=== PATIENT | female | born 1970 | race Asian ===

== ENCOUNTER 2020-09-21 17:26 | Observation (INO) | payer OTHER, SELFPAY ==
[2020-09-21] VITALS (13 sets, daily range): BP systolic 110–184; BP diastolic 73–111; PULSE 80–104; RESP 10–18; TEMP 37–37.9; O2SAT 93–100; BMI 28.3
--- NOTE | 2020-09-21 | PATH_ITS ---
[facility] Accession Number: [id number] . 01 Material submitted: . lymph node - RIGHT GROIN LYMPH NODES . 01 Clinical history: . PAIN, POSS HERNIA, FEVER AND CHILLS . 01 Diagnosis: Right Groin Lymph Nodes, Excision: Acute suppurative lymphadenitis with associated abscess formation and necrosis, see microscopic description. Negative for malignancy. MRV 10/01/2020 1453 Local . 01 Electronically signed: . Maggi Guadalupe MD, Pathologist NPI- [id number] . 01 Gross description: . The specimen is received in formalin, labeled groin lymph nodes and consists of four godoy-pink lymph nodes ranging from 1.0 to 2.8 cm. The lymph nodes are entirely submitted. . A1: one bisected lymph node (blue) and one trisected lymph node. A2-A4: one lymph node, serially sectioned. A5-A8: largest lymph node, serially sectioned. (EA:[id number]) /MRV 09/24/2020 1402 Local . 01 Microscopic: . Microscopic examination reveals multiple lymph nodes with extensive suppurative inflammation, collections of acute inflammatory cells and debris-laden histiocytes within the necrotic foci, merging into large stellate-shaped abscesses and extending into the perinodal fibroadipose tissue. In areas, the architecture is effaced by this extensive suppurative inflammation. To better evaluate this process, special stains and a limited panel of immunostains were performed (to evaluate the jorje architecture, as it is largely effaced by the abscess), as follows: . AFB: Negative for acid-fast bacilli. GMS-F: Negative for fungal organisms. . CD3: T lymphocytes positive. CD20: B lymphocytes positive (predominantly cortical areas). BCL2: T lymphocytes positive (germinal centers of the rare residual reactive follicles negative). BCL6: Rare follicles positive. Ki-67: Increased in the proliferating myeloids and histiocytes, and also marking the rare reactive germinal centers. The immunostains support normal distribution of lymphocytes in the areas with preserved architecture. . In summary, the histologic features of suppurative inflammation with necrosis and abscess formation are nonspecific and the differential diagnosis is wide, including various infectious/inflammatory disorders, e.g. fungal infection, mycobacterial infection (despite negative GMS and AFB special stains, respectively), cat scratch disease, infectious lymphogranuloma venereum, less likely infarction, etc. . Clinical correlation and correlation with cultures and other laboratory studies (if any), recommended to determine the causative agent. . Serologic/PCR studies are also recommended to specifically identify AFB organisms, fungal organisms, bacteria (Bartonella henselae, Chlamydia trachomatis, etc). . There is no evidence of malignancy. . * This test was developed and its performance characteristics determined by [facility]. It has not been cleared or approved by the U.S. Food and Drug Administration. The FDA has determined that such clearance or approval is not necessary. This test is used for clinical purposes. It should not be regarded as investigational or for research. . 01 Pathologist provided ICD-10: R59.0 . 01 CPT . 965312, 299983, 542476, D81753, C83796 Performed at: [address] [address], [place], [place] [id number] MD Waylon Mustafa MD Phone: [phone]
--- NOTE | 2020-09-21 17:57 | ED.ABDPAIN ---
HPI - Abdominal Pain General Chief Complaint: Abdominal Pain Stated Complaint: Pain, Poss Hernia, Fever and Chills Time Seen by Provider: 09/21/20 17:56 Source: patient Mode of arrival: Ambulatory Limitations: no limitations History of Present Illness HPI narrative: 50F non smoker with history of prior presents with her significant other and a chief complaint worsening right lower quadrant pain over the past few days. She has noticed a painful ?lump? for the past few days and saw her primary care provider who had ordered an outpatient ultrasound which is scheduled for September 29. She was encouraged to present to the emergency department for worsening symptoms or the presentation of fever. Patient's pain is worsening, particular with any motion and she has improvement with rest. She has had a fever as high as 100.6 at home. She is had no change in bowel movements, still passes gas and denies dysuria, frequency or urgency. She has had no pelvic pain nor vaginal bleeding or discharge. She has been NPO since 1:00 p.m. complaint: abdominal pain Onset (ago): day(s) Pain Consistency: constant Location: RLQ Severity: severe Quality: cramping and stabbing Radiation: none Relieving factors: rest Exacerbating factors: movement Associated symptoms: nausea, fever and chills Related Data Allergies Allergy/AdvReac Type Severity Reaction Status Date / Time No Known Drug Allergies Allergy Verified 09/21/20 18:18 Review of Systems Constitutional Constitutional: Reports chills, Denies fatigue, Reports fever(s), Denies frequent falls, Denies lethargy and Denies weakness Eyes Eyes: Denies change in vision, Denies eye discharge, Denies irritation and Denies loss of vision ENT Ears, Nose, Mouth, and Throat: Denies change in voice, Denies dizziness, Denies neck pain, Denies sore throat and Denies throat swelling Cardiovascular Cardiovascular: Denies chest pain, Denies irregular heart rhythm, Denies lightheadedness, Denies palpitations, Denies dyspnea, Denies dyspnea on exertion and Denies orthopnea Respiratory Respiratory: Denies cough, Denies dyspnea, Denies dyspnea on exertion and Denies wheezing Gastrointestinal Gastrointestinal: Reports abdominal pain, Denies change in bowel habits, Denies diarrhea, Reports nausea and Denies vomiting Musculoskeletal Musculoskeletal: Denies neck pain and Denies numbness Integumentary/Breasts Skin/Breast: Denies pruritus, Denies erythema, Denies rash and Denies wounds Neurologic Neurologic: Denies behavioral changes, Denies confusion, Denies dizziness, Denies frequent falls, Denies loss of vision, Denies numbness and Denies weakness Psychiatric Psychiatric: Denies anxiety, Denies behavioral changes, Denies confusion, Denies depression, Denies homicidal ideation and Denies suicidal ideation Endocrine Endocrine: Denies fatigue, Denies flushing and Denies palpitations Hematologic/Lymphatic Hematologic/Lymphatic: Denies easy bruising Allergic/Immunologic Allergic/Immunologic: Denies urticaria, Denies throat swelling and Denies wheezing Patient History Social History Smoking Status: Former smoker Smoking Status: Former smoker alcohol intake frequency: 0-2 drinks per day Substance Use Type: does not use Exam Narrative Exam Narrative: GENERAL: [50] year old patient appears stated age. Well-nourished, well-developed patient, in obvious distress, ill-appearing HEAD: Atraumatic. Normocephalic. EYES: Pupils equal round and reactive. Extraocular motions intact. No scleral icterus. No injection or drainage. ENT: Nose without bleeding, purulent drainage. Throat without erythema, tonsillar hypertrophy or exudate. Airway patent. NECK: Trachea midline. Non tender CARDIOVASCULAR: Regular rate and rhythm without murmurs, gallops, or rubs. RESPIRATORY: Clear to auscultation. Breath sounds equal bilaterally. No wheezes, rales, or rhonchi. GASTROINTESTINAL: Abdomen soft, tender mass in right groin consistent with incarcerated hernia. No overlying erythema, quite tender to palpation, unable to reduce, nondistended. EXTREMITIES: No edema or joint tenderness. BACK: Nontender without deformity or crepitance. No flank tenderness. NEURO: AOx3. SKIN: No rash or erythema of visible areas Initial Vital Signs Initial Vital Signs: Vital Signs Temperature 99.4 F 09/21/20 17:35 Pulse Rate 104 H 09/21/20 17:35 Respiratory Rate 16 09/21/20 17:35 Blood Pressure 184/111 H 09/21/20 17:35 Pulse Oximetry 98 09/21/20 17:35 Course Orders Ordered: ED Orders 09/21/20 17:44 EKG-12 Lead Stat 09/21/20 18:00 Complete Blood Count AUTO DIFF Stat Comprehensive Metabolic Panel Stat Lactate (Lactic Acid) Stat Lipase Stat Partial Thromboplastin Time Stat Prothrombin Time INR Stat 09/21/20 18:15 CT abdomen pelvis w con Stat 09/21/20 18:33 Blood Culture Stat 09/21/20 19:00 COVID19 - ADMIT (AUTOMATION TECH swab/PCR) Stat Potassium Chloride 40 meq/ (Sodium Chloride) 520 mls @ 130 mls/hr IV NOW ONE Stop: 09/21/20 23:29 Consultations Consultation #1: Call to General surgery (Dr. Ricci) after physical exam for discussion about this being a surgical case. She will come see patient awaiting CT results, but likely to the OR tonight Vital Signs Vital signs: Vital Signs - 8 hr 09/21/20 17:35 Temperature 99.4 F Pulse Rate 104 H Respiratory Rate 16 Blood Pressure 184/111 H Pulse Oximetry 98 MDM - Abdominal Pain Lab Data Result diagrams: 09/21/20 18:00 09/21/20 18:00 Labs: Lab Results 09/21/20 09/21/20 09/21/20 Range/Units 18:00 18:00 18:00 WBC 8.9 (4.5-11.0) X10^3/uL RBC 4.60 (4.0-5.2) X10^6/uL Hgb 13.8 (12.0-16.0) g/dL Hct 40.1 (36-46) % MCV 87.1 (80-100) fL MCH 30.0 (26-34) PG MCHC 34.5 (30-36) % RDW 13.0 (11.6-14.8) % Plt Count 315 (150-400) X10^3/uL Neut % (Auto) 68.8 (50-75) % Lymph % (Auto) 21.0 L (25-40) % [place] % (Auto) 9.6 (3-14) % Eos % (Auto) 0.2 L (2-4) % Baso % (Auto) 0.4 (0-2) % Neut # (Auto) 6100 (3408-8365) /uL Lymph # (Auto) 1900 (9100-2029) /uL [place] # (Auto) 800 (0-900) /uL Eos # (Auto) 0 (0-450) /uL Baso # (Auto) 0 (0-100) /uL PT 12.6 (10.1-12.7) SECONDS INR 1.1 (0.9-1.3) APTT 34 (26.4-36.2) SECONDS Sodium 132 L (137-145) mmol/L Potassium 3.3 L (3.4-5.1) mmol/L Chloride 98 (98-107) mmol/L Carbon Dioxide 27 (22-32) mmol/L BUN 14 (7-17) mg/dL Creatinine 0.57 (0.52-1.04) mg/dL Estimated GFR > 60.0 (>60) mL/min BUN/Creatinine Ratio 24.6 H (6-22) Glucose 107 H (70-100) mg/dL Lactate (0.7-2.1) mmol/L Calcium 9.4 (8.4-10.2) mg/dL Total Bilirubin 0.3 (0.2-1.3) mg/dL AST 25 (14-36) IU/L ALT 25 (<35) IU/L Alkaline Phosphatase 55 (38-126) U/L Total Protein 7.6 (6.3-8.2) g/dL Albumin 4.1 (3.5-5.0) g/dL Globulin 3.5 (1.7-4.1) g/dL Albumin/Globulin Ratio 1.2 (1.0-2.8) Lipase 102 (23-300) U/L 09/21/20 Range/Units 18:00 WBC (4.5-11.0) X10^3/uL RBC (4.0-5.2) X10^6/uL Hgb (12.0-16.0) g/dL Hct (36-46) % MCV (80-100) fL MCH (26-34) PG MCHC (30-36) % RDW (11.6-14.8) % Plt Count (150-400) X10^3/uL Neut % (Auto) (50-75) % Lymph % (Auto) (25-40) % [place] % (Auto) (3-14) % Eos % (Auto) (2-4) % Baso % (Auto) (0-2) % Neut # (Auto) (6943-2140) /uL Lymph # (Auto) (7377-3460) /uL [place] # (Auto) (0-900) /uL Eos # (Auto) (0-450) /uL Baso # (Auto) (0-100) /uL PT (10.1-12.7) SECONDS INR (0.9-1.3) APTT (26.4-36.2) SECONDS Sodium (137-145) mmol/L Potassium (3.4-5.1) mmol/L Chloride (98-107) mmol/L Carbon Dioxide (22-32) mmol/L BUN (7-17) mg/dL Creatinine (0.52-1.04) mg/dL Estimated GFR (>60) mL/min BUN/Creatinine Ratio (6-22) Glucose (70-100) mg/dL Lactate 1.4 (0.7-2.1) mmol/L Calcium (8.4-10.2) mg/dL Total Bilirubin (0.2-1.3) mg/dL AST (14-36) IU/L ALT (<35) IU/L Alkaline Phosphatase (38-126) U/L Total Protein (6.3-8.2) g/dL Albumin (3.5-5.0) g/dL Globulin (1.7-4.1) g/dL Albumin/Globulin Ratio (1.0-2.8) Lipase (23-300) U/L Point of care testing: Point of Care Testing Test Results Negative Urine Dip Bedside Urine Glucose Negative Bedside Urine Bilirubin - Negative Bedside Urine Ketone - Negative Urine Specific [place] 1.015 Bedside Urine Occult Blood - Negative Bedside Urine pH 7 Bedside Urine Protein +/- 15 Bedside Urine Urobilinogen - Negative Bedside Urine Nitrite - Negative Bedside Urine Leukocytes - Negative Esterase Imaging Data CT scan - abdomen/pelvis: Radiologist's Impression: [address] [id number] Scan ReportSigned Patient: Kari Real KMR#: [id number]: [id number]:[id number]/Sex: 50 / FDate of Service: 09/21/20Loc: EDAccession Number: [id number] Procedure: CT abdomen pelvis w con Ordering Provider: Christiano Ureña D.O. PROCEDURE: CT ABDOMEN PELVIS W CON INDICATIONS: severe rlq pain, likely incarcerated hernia TECHNIQUE: After the administration of intravenous contrast, 5 mm thick sections acquired from the diaphragm to the symphysis. 5 mm coronal and sagittal reformats were acquired. For radiation dose reduction, the following was used: automated exposure control, adjustment of mA and/or kV according to patient size. COMPARISON: None. FINDINGS: Image quality: Excellent. ABDOMEN: Lung bases: Lung bases are clear. Heart size is normal. Solid organs: Evaluation of the liver demonstrates no focal hepatic lesions. The gallbladder appears within normal limits without calcified gallstones. Biliary system is non-dilated. Pancreas enhances normally. No peripancreatic fat stranding or fluid collections. No pancreatic duct dilatation. The spleen is normal in size. No adrenal nodules. Kidneys demonstrate no hydronephrosis. 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 A punctate density within the right kidney is suggestive of a small nonobstructing stone. Evaluation 4 small stones is limited in the setting of intravenous contrast. Peritoneum and bowel: Bowel loops demonstrate normal wall thickness and caliber. The appendix is normal in appearance. There is colonic diverticulosis without acute diverticulitis. No free fluid or air. Nodes and vessels: No retroperitoneal or mesenteric adenopathy by size criteria. Aorta and inferior vena cava are normal in size. Miscellaneous: No ventral hernias. PELVIS: Genitourinary: Bladder wall thickness is normal. The uterus demonstrates multiple lobulated masses likely representing fibroids, including a right posterior exophytic fibroid measuring up to 4.9 x 3.9 cm. Miscellaneous: No inguinal hernias. There is a small right femoral hernia containing herniated fat as well as an enlarged right inguinal lymph node measuring up to 1.2 cm. There is associated mild inflammatory fat stranding in the region. An additional enlarged inguinal lymph node lateral to the hernia measures up to 1.6 cm. Bones: No suspicious bony lesions. No vertebral body compression fractures. IMPRESSION: 1. Small right femoral hernia containing herniated fat and an enlarged right inguinal lymph node. Associated fat stranding is present within the hernia consistent within a nonspecific inflammatory changes or fat necrosis. 2. Additional prominent right inguinal lymph nodes also demonstrated including an enlarged 1.6 cm node with adjacent fat stranding. These are nonspecific but are also likely reactive secondary to an infectious or inflammatory process. Clinical follow-up is recommended to demonstrate resolution of lymphadenopathy. 3. Enlarged uterus with multiple fibroids. 4. No evidence of appendicitis. 5. Horseshoe kidney demonstrated without hydronephrosis. Dictated by: Waylon Warner M.D. on 09/21/2020 at 19:01 Approved by: Waylon Warner M.D. on 09/21/2020 at 19:13 Discharge Plan Departure Patient Disposition: Admitted as Observation Clinical Impression: Incarcerated hernia Admit Date/Time: 09/21/20 19:52 Admit Provider: Diane Betancourt
[2020-09-21 18:13] LABS: Add Manual Diff / Slide Review NO; Basophils Absolute Auto 0 /uL (0-100); Basophils Percent Auto 0.4 % (0-2); Eosinophils Absolute Auto 0 /uL (0-450); Eosinophils Percent Auto 0.2 % (2-4); Hematocrit 40.1 % (36-46); Hemoglobin 13.8 g/dL (12.0-16.0); Lymphocytes Absolute Auto 1900 /uL (1100-4500); Mean Corpuscular HGB Conc 34.5 % (30-36); Mean Corpuscular Volume 87.1 fL (80-100); Monocytes Absolute Auto 800 /uL (0-900); Monocytes Percent Auto 9.6 % (3-14); Neutrophils Absolute Auto 6100 /uL (1500-7000); Neutrophils Percent Auto 68.8 % (50-75); Platelet Count 315 X10^3/uL (150-400); White Blood Cell Count 8.9 X10^3/uL (4.5-11.0)
--- NOTE | 2020-09-21 18:15 | DI.CT.S_ITS ---
PROCEDURE: CT ABDOMEN PELVIS W CON INDICATIONS: severe rlq pain, likely incarcerated hernia TECHNIQUE: After the administration of intravenous contrast, 5 mm thick sections acquired from the diaphragm to the symphysis. 5 mm coronal and sagittal reformats were acquired. For radiation dose reduction, the following was used: automated exposure control, adjustment of mA and/or kV according to patient size. COMPARISON: None. FINDINGS: Image quality: Excellent. ABDOMEN: Lung bases: Lung bases are clear. Heart size is normal. Solid organs: Evaluation of the liver demonstrates no focal hepatic lesions. The gallbladder appears within normal limits without calcified gallstones. Biliary system is non-dilated. Pancreas enhances normally. No peripancreatic fat stranding or fluid collections. No pancreatic duct dilatation. The spleen is normal in size. No adrenal nodules. Kidneys demonstrate no hydronephrosis. 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 A punctate density within the right kidney is suggestive of a small nonobstructing stone. Evaluation 4 small stones is limited in the setting of intravenous contrast. Peritoneum and bowel: Bowel loops demonstrate normal wall thickness and caliber. The appendix is normal in appearance. There is colonic diverticulosis without acute diverticulitis. No free fluid or air. Nodes and vessels: No retroperitoneal or mesenteric adenopathy by size criteria. Aorta and inferior vena cava are normal in size. Miscellaneous: No ventral hernias. PELVIS: Genitourinary: Bladder wall thickness is normal. The uterus demonstrates multiple lobulated masses likely representing fibroids, including a right posterior exophytic fibroid measuring up to 4.9 x 3.9 cm. Miscellaneous: No inguinal hernias. There is a small right femoral hernia containing herniated fat as well as an enlarged right inguinal lymph node measuring up to 1.2 cm. There is associated mild inflammatory fat stranding in the region. An additional enlarged inguinal lymph node lateral to the hernia measures up to 1.6 cm. Bones: No suspicious bony lesions. No vertebral body compression fractures. IMPRESSION: 1. Small right femoral hernia containing herniated fat and an enlarged right inguinal lymph node. Associated fat stranding is present within the hernia consistent within a nonspecific inflammatory changes or fat necrosis. 2. Additional prominent right inguinal lymph nodes also demonstrated including an enlarged 1.6 cm node with adjacent fat stranding. These are nonspecific but are also likely reactive secondary to an infectious or inflammatory process. Clinical follow-up is recommended to demonstrate resolution of lymphadenopathy. 3. Enlarged uterus with multiple fibroids. 4. No evidence of appendicitis. 5. Horseshoe kidney demonstrated without hydronephrosis. Dictated by: Waylon Warner M.D. on 09/21/2020 at 19:01 Approved by: Waylon Warner M.D. on 09/21/2020 at 19:13
[2020-09-21 18:21] LABS: INR 1.1 (0.9-1.3); Prothrombin Time 12.6 SECONDS (10.1-12.7)
[2020-09-21 18:23] LABS: PTT Partial Thromboplastin Tim 34 SECONDS (26.4-36.2)
[2020-09-21 18:25] LABS: Alanine Aminotransferase 25 IU/L (<35); Albumin 4.1 g/dL (3.5-5.0); Albumin Globulin Ratio 1.2 (1.0-2.8); Alkaline Phosphatase 55 U/L (38-126); Aspartate Aminotransferase 25 IU/L (14-36); BUN Creatinine Ratio 24.6 (6-22); Bilirubin Total 0.3 mg/dL (0.2-1.3); Blood Urea Nitrogen 14 mg/dL (7-17); Calcium 9.4 mg/dL (8.4-10.2); Carbon Dioxide 27 mmol/L (22-32); Chloride 98 mmol/L (98-107); Estimated Glomerular Filt Rate > 60.0 mL/min (>60); Globulin 3.5 g/dL (1.7-4.1); Glucose 107 mg/dL (70-100); HEMOLYSIS 24 (0-50); Lipase 102 U/L (23-300); Potassium 3.3 mmol/L (3.4-5.1); Sodium 132 mmol/L (137-145); Total Protein 7.6 g/dL (6.3-8.2)
[2020-09-21 18:26] LABS: Lactate (Lactic Acid) 1.4 mmol/L (0.7-2.1)
--- NOTE | 2020-09-21 19:52 | PM.HP.1 ---
History of Present Illness History of Present Illness Date Patient Seen: 09/21/20 Time Patient Seen: 19:52 Chief complaint: Pain, Poss Hernia, Fever and Chills Narrative: This is a 50 yo woman with h/o HTN, HLD, three days of right groin pain. She has been renovating her home with her and has been doing more physical labor than usual. She noticed sudden pain and a bulge in her groin on Tuesday. It was worse on , and she came in to see her PCP. An US was ordered and scheduled for 09/29. She continued to have worsening pain, and today noted a fever of 100.6. She came into the ER and had a CT scan which revealed a femoral hernia with incarcerated fat and a lymph node, with surrounding fat stranding. In the ER her temp is 99.6, and her HR is 104. She has a normal WBC and no left shift. She c/o severe right groin pain and is exquisitely tender. ROS: Denies dysuria, hematuria, flank pain, denies obstipation, denies nausea/vomiting. Thirteen system review is otherwise negative other than as mentioned below and in HPI. PMH: DM2 HTN HLD Eczema PSH: C section 15 years ago LEEP procedure Allergies: NKDA Meds: Atorvastatin 20mg/d Meformin 500mg/d Lisinopril 20mg/d Metoprolol 50mg/d HCTZ 25mg/d SOC: Lives with ; stopped smoking 20 years ago; rare alcohol use PE: GENERAL: Alert, comfortable, in mild distress due to pain. Overweight. Appears stated age. Answers questions promptly and appropriately. Vital signs noted. HENT: Normocephalic, atraumatic. Hearing intact. EYES: Conjunctiva pink, sclera white, no periorbital swelling. CARDIOVASCULAR: Mild tachycardia at 1:04 a.m.. No pedal edema. RESPIRATORY: Non-tachypneic, breathing comfortably on room air. GASTROINTESTINAL: Abdomen soft and non-distended, nontender GENITALURINARY: Well-healed incisional scar. Exquisitely tender, non reducible right groin bulge consistent with a femoral hernia MUSCULOSKELETAL: Equal tone and mass bilaterally. SKIN: Warm, dry, soft, appropriate color for ethnicity. No other lesions, rashes, or wounds. NEURO: Alert and Oriented X 3. No gross sensory deficits, or cognitive issues. PSYCH: Appropriate affect and mood. Patient History Family & Social History Safety & Behavioral: Feels Safe in Current Yes Environment Been Physically Hurt or No Threatened By a Person Tobacco & Substance use: Smoking Status Former smoker alcohol intake frequency 0-2 drinks per day Substance Use Type does not use Meds Home Medications and Allergies Allergies Allergy/AdvReac Type Severity Reaction Status Date / Time No Known Drug Allergies Allergy Verified 09/21/20 18:18 Exam Vital Signs (past 8 hours): - 09/21/20 17:35 Temperature 99.4 F Pulse Rate 104 H Respiratory Rate 16 Blood Pressure 184/111 H Pulse Oximetry 98 Oxygen Delivery Method Room Air Objective Imaging CT scan - abdomen: Radiologist's impression: [address] [id number] Scan ReportSigned Patient: Kari Real KMR#: [id number]: [id number]:[id number]/Sex: 50 / FDate of Service: 09/21/20Loc: EDAccession Number: [id number] Procedure: CT abdomen pelvis w con Ordering Provider: Christiano Ureña D.O. PROCEDURE: CT ABDOMEN PELVIS W CON INDICATIONS: severe rlq pain, likely incarcerated hernia TECHNIQUE: After the administration of intravenous contrast, 5 mm thick sections acquired from the diaphragm to the symphysis. 5 mm coronal and sagittal reformats were acquired. For radiation dose reduction, the following was used: automated exposure control, adjustment of mA and/or kV according to patient size. COMPARISON: None. FINDINGS: Image quality: Excellent. ABDOMEN: Lung bases: Lung bases are clear. Heart size is normal. Solid organs: Evaluation of the liver demonstrates no focal hepatic lesions. The gallbladder appears within normal limits without calcified gallstones. Biliary system is non-dilated. Pancreas enhances normally. No peripancreatic fat stranding or fluid collections. No pancreatic duct dilatation. The spleen is normal in size. No adrenal nodules. Kidneys demonstrate no hydronephrosis. 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 A punctate density within the right kidney is suggestive of a small nonobstructing stone. Evaluation 4 small stones is limited in the setting of intravenous contrast. Peritoneum and bowel: Bowel loops demonstrate normal wall thickness and caliber. The appendix is normal in appearance. There is colonic diverticulosis without acute diverticulitis. No free fluid or air. Nodes and vessels: No retroperitoneal or mesenteric adenopathy by size criteria. Aorta and inferior vena cava are normal in size. Miscellaneous: No ventral hernias. PELVIS: Genitourinary: Bladder wall thickness is normal. The uterus demonstrates multiple lobulated masses likely representing fibroids, including a right posterior exophytic fibroid measuring up to 4.9 x 3.9 cm. Miscellaneous: No inguinal hernias. There is a small right femoral hernia containing herniated fat as well as an enlarged right inguinal lymph node measuring up to 1.2 cm. There is associated mild inflammatory fat stranding in the region. An additional enlarged inguinal lymph node lateral to the hernia measures up to 1.6 cm. Bones: No suspicious bony lesions. No vertebral body compression fractures. IMPRESSION: 1. Small right femoral hernia containing herniated fat and an enlarged right inguinal lymph node. Associated fat stranding is present within the hernia consistent within a nonspecific inflammatory changes or fat necrosis. 2. Additional prominent right inguinal lymph nodes also demonstrated including an enlarged 1.6 cm node with adjacent fat stranding. These are nonspecific but are also likely reactive secondary to an infectious or inflammatory process. Clinical follow-up is recommended to demonstrate resolution of lymphadenopathy. 3. Enlarged uterus with multiple fibroids. 4. No evidence of appendicitis. 5. Horseshoe kidney demonstrated without hydronephrosis. Dictated by: Waylon Warner M.D. on 09/21/2020 at 19:01 Approved by: Waylon Warner M.D. on 09/21/2020 at 19:13 Labs Result Diagrams: 09/21/20 18:00 09/21/20 18:00 Labs: Laboratory Results - last 24 hr 09/21/20 09/21/20 09/21/20 18:00 18:00 18:00 WBC 8.9 RBC 4.60 Hgb 13.8 Hct 40.1 MCV 87.1 MCH 30.0 MCHC 34.5 RDW 13.0 Plt Count 315 Neut % (Auto) 68.8 Lymph % (Auto) 21.0 L [place] % (Auto) 9.6 Eos % (Auto) 0.2 L Baso % (Auto) 0.4 Neut # (Auto) 6100 Lymph # (Auto) 1900 [place] # (Auto) 800 Eos # (Auto) 0 Baso # (Auto) 0 PT 12.6 INR 1.1 APTT 34 Sodium 132 L Potassium 3.3 L Chloride 98 Carbon Dioxide 27 BUN 14 Creatinine 0.57 Estimated GFR > 60.0 BUN/Creatinine Ratio 24.6 H Glucose 107 H Lactate Calcium 9.4 Total Bilirubin 0.3 AST 25 ALT 25 Alkaline Phosphatase 55 Total Protein 7.6 Albumin 4.1 Globulin 3.5 Albumin/Globulin Ratio 1.2 Lipase 102 09/21/20 18:00 WBC RBC Hgb Hct MCV MCH MCHC RDW Plt Count Neut % (Auto) Lymph % (Auto) [place] % (Auto) Eos % (Auto) Baso % (Auto) Neut # (Auto) Lymph # (Auto) [place] # (Auto) Eos # (Auto) Baso # (Auto) PT INR APTT Sodium Potassium Chloride Carbon Dioxide BUN Creatinine Estimated GFR BUN/Creatinine Ratio Glucose Lactate 1.4 Calcium Total Bilirubin AST ALT Alkaline Phosphatase Total Protein Albumin Globulin Albumin/Globulin Ratio Lipase Assessment & Plan Assessment and plan (1) Incarcerated hernia: Status: Acute (2) Diabetes: Status: Acute (3) History of : Status: Acute (4) Femoral hernia of right side: Status: Acute Assessment & Plan narrative: This is a 50-year-old woman with an incarcerated femoral hernia. She has low-grade temperature, and is was laid tender. She has some fat stranding on her CT scan consistent with necrosis. Risks and benefit of femoral hernia repair were discussed. We discussed the open versus laparoscopic method of repair. Given the fact that it is incarcerated, and I may not be able to repair with mesh given the local stranding and potential necrosis I recommended repairing it open, so that it may be more easily reduced, and repaired with suture only if necessary. Risks and benefits of femoral hernia repair with or without mesh were discussed including risk of bleeding, infection, damage to nearby structures, need for additional procedures, hernia recurrence, mesh infection, chronic pain. The patient desires to proceed with surgery. Plan: Proceed to OR this evening as soon as possible for open repair of femoral hernia COVID-19 COVID-19 status: Result pending Result date/Date tested (Pos, Neg/Pending): 09/21/20 Time Spent With Patient Time with patient: Greater than 35 minutes
[2020-09-21] MEDS: POTASSIUM CHLORIDE 40 MEQ in SODIUM CHLORIDE 0.9% 500 ML 130 ML IV (20:18)
[2020-09-21 20:25] LABS: COVID19 - ADMIT (NP swab/PCR) Negative (Negative)
[2020-09-21] MEDS: CEFAZOLIN 2 GM/100 ML FROZ.PIGGY IV (21:09)
[2020-09-21] MEDS: LACTATED RINGERS 1,000 ML 42 ML IV ×2 (21:10→22:36)
--- NOTE | 2020-09-21 21:31 | SUR.OPER ---
Supine on padded OR bed, head on pillow, arms secured on padded arm boards at <90 degrees abduction, legs uncrossed, safety belt at thigh, tape over blanket over lower legs.
[2020-09-21] MEDS: BUPIVACAINE 0.25% W/ EPI (PF) 10 ML VIAL 20 ML INJ (21:42)
--- NOTE | 2020-09-21 22:39 | P.OP_ITS ---
Operative Date/Time/Diagnoses Date of procedure: 09/21/20 Time of procedure: 22:39 Pre-op diagnosis: incarcerated femoral hernia Post-op diagnosis: other (Enlarged right groin lymph nodes, no femoral hernia) Procedure & Clinicians Procedure: Right groin dissection, removal of abnormal lymph nodes x 3 Same procedure as scheduled: No Indications: Acute right groin pain, non reducible right groin mass, CT scan read as femoral hernia Surgeon: Diane Betancourt Click Yes if Unassisted: Yes Anesthesia Type: General Operative Notes Findings: Three enlarged lymph nodes. No inguinal or femoral hernia identified. Closure Type: primary Specimen(s): other (Right groin lymph nodes x 3) Estimated Blood Loss (mL): 5 Procedure in detail: The patient was brought into the OR, placed supine on the OR table, and appropriate preoperative antibiotics were given. Sequential compression devices were placed on both legs and turned on. General anesthesia was induced and the patient was intubated with an LMA by the anesthesiologist. The right lower abdomen and groin were prepped and draped in sterile fashion for inguinal incision. A surgical time out was conducted. Local anesthetic was infiltrated into the skin and a 10 blade was used to make a transverse 10cm incision over the palpable groin mass. Dissection was carried down to through the subcutaneous fat and tom's fascia. Dissection was carried down to the palpable masses in the groin. Three firm masses were identified, and careful dissection was undertaken to dissect out the structures, which were identified as lymph nodes. Ligaclips were used to control the small vessels and lymphatics going to the lymph nodes. Once all three firm and enlarged nodes were removed, they were passed off the table for pathology. Careful examination of the femoral canal was undertaken and no hernia bulge or defect was identified. At this point, the decision was made to close. I then closed the Tom's fascia with 3-0 Vicryl. The remaining local anesthetic was given in the skin and soft tissue. The skin was closed with ru nning 4-0 Monocryl subcuticular stitch. The skin edges were sealed with Dermabond. The patient was awakened from anesthesia and extubated. She tolerated the procedure well. Needle, sponge and instrument counts were correct x 2. The patient was transferred to PACU in stable condition. Complications: none Post-operative Condition: stable Disposition: PACU
[2020-09-21] MEDS: HYDROMORPHONE 2 MG INJ 0.5 MG IV ×2 (22:58→23:05)
[2020-09-21] MEDS: OXYCODONE IR 5 MG TABLET PO (23:01)
[2020-09-22] VITALS (7 sets, daily range): BP systolic 98–123; BP diastolic 65–81; PULSE 63–87; RESP 14–20; TEMP 36.7–37.1; O2SAT 95–98; BMI 28.3
[2020-09-22] MEDS: ACETAMINOPHEN 325 MG TABLET 650 MG PO ×3 (00:09→11:48)
[2020-09-22] MEDS: SODIUM CHLORIDE 0.9% FLUSH 10 ML IV ×2 (03:32→09:30)
--- NOTE | 2020-09-22 03:37 | PC.NURSE ---
2340 Pt. admitted from PACU awaken easily , A&Ox4. C/O RLQ abdominal & Rt. groin pain. Scheduled Tyleno 650 mg. administered & ice pack applied to surgical site. Oriented to her room showed her how to use her call light, bed & TV controls. Still slight sedated, but able to answer her admit assessment, spouse Raymon was @ the bedside. Given her an IS was able to used IS x5, wants to sleep. Will cont. POC & monitor.
[2020-09-22] MEDS: OXYCODONE IR 5 MG TABLET PO ×2 (05:42→11:48)
--- NOTE | 2020-09-22 06:53 | PC.NURSE ---
Bladder scanned 537 cc noted in the bladder. Encouraged to get up OOB & she used the BSC voided 500 cc. Will monitor.
[2020-09-22] MEDS: ONDANSETRON 4 MG/2 ML INJ IV (09:27)
[2020-09-22] MEDS: METOPROLOL ER 50 MG TABLET PO (09:30)
[2020-09-22] MEDS: HEPARIN 5,000 UNIT/ML VIAL 5000 UNIT SUBCUT (09:30)
[2020-09-22] MEDS: hydroCHLOROthiazide 25 MG TABLET PO (09:30)
[2020-09-22] MEDS: SENNOSIDES 8.6 MG TABLET 17.2 MG PO (09:30)
[2020-09-22] MEDS: lisinopriL 20 MG TABLET PO (09:30)
--- NOTE | 2020-09-22 12:01 | PC.NURSE ---
Day shift: Pt left unit at approx 1200. Taken to car driven by her spouse in by EVAN Wilson. Paperwork signed and all questions answered. Pt has all personal belongings. scripts sent to Pts pharmacy electronic. Op-site BRIDGET w/ no s/s of infection. Durabond intact and not leaking. Pt encouraged to use ice when at home.
--- NOTE | 2020-09-22 12:21 | CM.DANOTE ---
DCP: Case received, EMR reviewed and met with patient. Introduced self and role. Was able to obtain information from patient regarding her baseline activity status prior to hospitalization. DCP assessment completed with information currently available. Patient is a 50 year old female who admitted yesterday afternoon to the care of the hospitalist/surgical team. PCP: ROGE grady (Patient was assigned a new provider, couldn't remember the name.) Payer: [employer]. Patient came to the hospital via private veehicle secondary to having a fever, chills, as well as groinal pain. Patient has been helping her renovate their home, and was concerned about having a hernia. Patient had surgery yesterday for femoral hernia, and was noted to have infection in her lymph nodes. Met with patient in her room. She is alert and oriented, independent at her baseline. She resides in [place] with her spouse, Raymon. Her is retired from the . P: Patient has discharge orders for home today with no needs. Desiree Menchaca RN/Pick Pulling Machine Operator
== END 2020-09-22 12:05 | disposition home or self-care (01) ==
LOC: ED 17:56 → AC 19:53
PROVIDERS: Emergency Medicine; Admitting Provider Surgery; Emergency Provider Emergency Medicine; Referring Provider Emergency Medicine; Visit Provider Surgery
PROC: (CPT 38531; principal; 2020-09-21 20:30)
DX: R59.0 Localized enlarged lymph nodes (principal); E11.9 Type 2 diabetes mellitus without complications; I10 Essential (primary) hypertension; Z98.891 History of uterine scar from previous surgery; E78.5 Hyperlipidemia, unspecified; Z79.84 Long term (current) use of oral hypoglycemic drugs; Z20.822 Contact with and (suspected) exposure to COVID-19
CPT/HCPCS: 38531; 36415; 74177; 80053; 81003; 81025; 82962; 83605; 83690; 85025; 85610; 85730; 87040; 87635; 93005; 96365; 96366; 96372; 96375; 99218; 99284; G0378; J0330; J0690; J1170; J1644; J2250; J2405; J2704; J3010; J3480; Q9967

== ENCOUNTER → 2020-12-27 07:58 | Outpatient (CLI) | payer OTHER, SELFPAY ==
[2020-09-22 06:53] VITALS: BMI 28.3
--- NOTE | 2020-12-27 07:59 | DI.MG.S_ITS ---
BILATERAL DIGITAL SCREENING MAMMOGRAM 3D/2D WITH CAD: 12/27/2020 CLINICAL: Routine screening. Comparison is made to exams dated: 09/14/2017 mammogram and 08/06/2015 mammogram - [facility]. There are scattered fibroglandular elements in both breasts. Current study was also evaluated with a Computer Aided Detection (CAD) system. No significant masses, calcifications, or other findings are seen in either breast. There has been no significant interval change. IMPRESSION: NEGATIVE There is no mammographic evidence of malignancy. A 1 year screening mammogram is recommended. This exam was interpreted at Station ID: [id number]. NOTE: For mammograms, a report in lay terms will be sent to the patient. Approximately 15% of breast malignancies will not be visualized mammographically. In the management of a palpable breast mass, a negative mammogram must not discourage biopsy of a clinically suspicious lesion. Electronically Signed By: Nazanin whittington/ada:12/29/2020 08:32:33 letter sent: Normal Exam ACR BI-RADS Category 1: Negative [id number]
== END ==
PROVIDERS: Referring Provider Family Medicine; Visit Provider Family Medicine
DX: Z12.31 Encounter for screening mammogram for malignant neoplasm of breast (principal)
CPT/HCPCS: 77063; 77067

== ENCOUNTER → 2021-04-30 15:52 | Outpatient (CLI) | payer OTHER, SELFPAY ==
[2020-09-22 06:53] VITALS: BMI 28.3
[2021-04-30 16:30] LABS: COVID19 -Nasal RAPID Negative (Negative)
== END ==
PROVIDERS: PCP Family Medicine; Referring Provider Specialist; Visit Provider Specialist
DX: Z01.812 Encounter for preprocedural laboratory examination (principal); Z20.822 Contact with and (suspected) exposure to COVID-19
CPT/HCPCS: 87635

== ENCOUNTER 2021-05-01 06:26 | Day surgery (SDC) | payer OTHER, SELFPAY ==
[2020-09-22 06:53] VITALS: BMI 28.3
[2021-04-28 12:20] VITALS: BMI 29.8
[2021-05-01] VITALS (20 sets, daily range): BP systolic 106–153; BP diastolic 63–97; PULSE 56–100; RESP 10–18; TEMP 36.1–36.9; O2SAT 95–100; BMI 29.8
--- NOTE | 2021-05-01 | PATH_ITS ---
[facility] Accession Number: [id number] . 01 Material submitted: . uterus - UTERUS, BILATERAL FALLOPIAN TUBES AND OVARIES . 02 Diagnosis: Uterus with Cervix, Bilateral Fallopian Tubes and Ovaries, Total Hysterectomy and Bilateral Salpingo-oophorectomy: Multiple benign leiomyomata, up to 7 cm in greatest dimension. Cervix with no diagnostic abnormality. Inactive endometrium with no diagnostic abnormality. Bilateral ovaries with no diagnostic abnormality. Bilateral fimbriated fallopian tubes with no diagnostic abnormality. No evidence of malignancy. [facility] 05/05/2021 1529 Local . 02 Electronically signed: . Ernesto Mayberry MD, PhD, Pathologist NPI- [id number] . 01 Gross description: . The specimen is received in formalin, labeled uterus, bilateral fallopian tubes and ovaries, and consists of a fragmented uterus and cervix weighing 198 g and measuring 6.0 cm from superior fundus to lower uterine segment by 7.0 cm from cornu to cornu by 7.0 cm from anterior to posterior. The detached cervix measures 5.0 cm in length by 3.0 x 2.5 cm, and there is a 1.0 x 0.4 cm os. The serosa is godoy-pink and smooth with multiple subserosal nodules. The specimen is bivalved to reveal and godoy-pink, herringbone endocervical mucosa. The endometrial cavity measures 3.5 x 2.6 cm and displays a godoy-pink, glistening, and hemorrhagic endometrium measuring 0.2 cm in thickness. The myometrium is godoy-pink and trabeculated, measuring up to 2.8 cm in thickness. There are multiple godoy-white, whorled leiomyomata ranging from 0.2 cm to 7.0 cm with no areas of hemorrhage, necrosis, or cystic degeneration. The largest detached leiomyoma weighs 79 g. The right ovary measures 3.0 x 2.5 x 1.5 cm, and the left ovary measures 3.5 x 2.2 x 2.0 cm. The external surfaces are godoy and smooth to cerebriform. Sectioning reveals two godoy smooth-walled cysts measuring 0.3 cm and 1.0 cm with no papillary excrescences. The right fallopian tube measures 6.0 cm in length by 0.8 cm in diameter, and the left fallopian tube measures 6.5 cm in length by 0.9 cm in diameter. The serosa is pink-purple and smooth, and the right fallopian tube has a 0.5 x 0.4 x 0.4 cm, paratubal cyst. Sectioning reveals a godoy mucosa and a stellate lumen measuring 0.3 cm in diameter. Management Technician sections are submitted. . A1-A2: Cervix. A3-A4: Anterior uterus, business office representative leiomyomata. A5-A8: Posterior uterus, business office representative leiomyomata. A9-A10: Management Technician sections of detached leiomyoma. A11: Management Technician right ovary. A12: Management Technician cross-sections of right fallopian tube and bisected fimbriae. A13: Management Technician left ovary. A14: Management Technician cross-sections of left fallopian tube and bisected fimbriae. ([id number]) /FRR 05/02/2021 1738 Local . 02 Pathologist provided ICD-10: D25.9 . 02 CPT . 102948 Performed at: 01 [facility] [address] [id number] MD Waylon Mustafa MD Phone: [phone] Performed at: 02 [facility] [id number] [place] [id number] MD Sarahy Alexander MD Phone: [phone]
--- NOTE | 2021-05-01 07:25 | PM.PREOP ---
Pre-operative Note COVID-19 COVID-19 status: Negative Result date/Date tested (Pos, Neg/Pending): 04/30/21 Interval Note History & Physical reviewed/Exam performed by Physician: Yes Changes to H&P: No
[2021-05-01] MEDS: LACTATED RINGERS 1,000 ML 100 ML IV ×4 (07:39→22:40)
[2021-05-01] MEDS: CEFAZOLIN 1 GM VIAL 2 GM IV (07:50)
[2021-05-01] MEDS: ROPIVACAINE 0.2% PF 2 MG/ML 10ML AMP 20 ML INJ (08:21)
[2021-05-01] MEDS: BUPIVACAINE 0.5% (PF) 30 ML, EPINEPHrine 0.15 MG INJ (08:21)
--- NOTE | 2021-05-01 08:24 | SUR.OPER ---
Lithotomy on padded OR bed. [place] Pad Positioner under torso. Head on pillow, arms padded and tucked at sides. Legs secured in padded yellow fins stirrups.
--- NOTE | 2021-05-01 10:09 | P.OP_ITS ---
Operative Date/Time/Diagnoses Date of procedure: 05/01/21 Time of procedure: 10:09 Pre-op diagnosis: Dysmenorrhea, uterine fibroids, history of cervical dysplasia Post-op diagnosis: same (Perineal endometriosis) Procedure & Clinicians Procedure: Laparoscopic-assisted vaginal hysterectomy with bilateral salpingo oophorectomies and destruction of peritoneal endometriosis, with lysis of adhesions Same procedure as scheduled: Yes Indications: Dysmenorrhea, uterine fibroids, history of cervical dysplasia Surgeon: Berta Delcid Operations Program Manager: Kareen Mobley Click Yes if Unassisted: No Anesthesia Type: General Operative Notes Findings: Enlarged fibroid uterus. Adhesions at the bladder flap from prior section, right sidewall peritoneal endometriosis, normal appearing ovaries and fallopian tubes Closure Type: primary Specimen(s): other (Uterus, tubes, ovaries) Applied: catheter (Parrish) Estimated Blood Loss (mL): 300 Blood products transfused: none Procedure in detail: Patient was brought to the operating room where she underwent general anesthesia. She was placed in surgical specialty center stirrups. A check system was reviewed. 2 gram Ancef were in prior to beginning case. Warming was in place with Viv Hugger. Pulsatile stockings were in place and functional. She was prepped and draped in the usual sterile fashion. A single-tooth tenaculum was placed on the anterior lip of the cervix. The cervix was dilated to #6 Hegar dilator to allow the uterine manipulator to be placed through the cervix into the uterus with the balloon inflated with 3 mL of air. A Parrish catheter was placed. Area of the umbilical incision was injected with Marcaine. An incision was made with the scalpel. The Verees needle was placed in the abdomen. Correct placement was noted by withdrawing on the syringe and the having a drop of water fall easily through the syringe into the abdomen. The abdomen was insufflated with CO2. A 5 mm trocar was placed through the umbilical incision under direct visualization. 5 mm trochars were placed in the right and left lower quadrant under direct visualization. There did not appear to be any damage with placement of the trochars. The PK generator was used to cauterize and cut the infundibulopelvic ligaments bilaterally. Sequential bites were taken along the broad ligament freeing the fallopian tubes and ovaries bilaterally. Adhesions in the anterior bladder flap were cut with scissors. A Nathaly loop was placed around the uterus in the uterus was amputated. A large posterior fibroid was removed with the PK. Adequate hemostasis was noted. Next the procedure was switched to a vaginal approach. The area the cervical incision was injected with Marcaine. Single- tooth tenaculum was placed on the posterior lip of the cervix and a posterior colpotomy incision was made. The uterosacral ligaments were clamped, cut, and ligated with 0 Vicryl suture which was used throughout the rest the case unless otherwise indicated. The cervix was circumscribed with the scalpel. The bladder pillars were clamped cut and ligated. Using sharp and blunt dissection the bladder was pushed away from the cervix. Sequential bites were taken up the cardinal and broad ligaments. An anterior colpotomy incision was made and the bladder held away from the remaining cervix. A glove with a lap was placed in the vagina and the abdomen reinsufflated with CO2. The uterus tubes and ovaries were grasped as well as the large free fibroid. They were passed to the vaginal incision and were removed vaginally. The vaginal cuff was closed from anterior to posterior with [id number] sutures. The abdomen was reinsufflated and adequate hemostasis was noted. 10 cc of ropivacaine were placed over the incision site. CO2 was allowed to escape from the abdomen and the trochars were removed. The skin was closed with 4-0 Monocryl. Counts of instruments and sponges were correct. Patient went to recovery room in good condition. Complications: none Post-operative Condition: stable Disposition: Acute Care Plan for aftercare: Home when awake and stable, tolerating regular diet, good pain control, and ambulatory.
--- NOTE | 2021-05-01 10:18 | SUR.PHASEI ---
10am. Patient to PACU in bed after general anesthesia breathing unassisted on room air. SBAR report at bedside from Dr Ledesma and Babita RINCON.
--- NOTE | 2021-05-01 10:54 | SUR.PHASEI ---
Pt complained of pain feeling like cramps. Called in to OR#[address] Delcid via Babita. See new order for Toradol IV 30mg.
[2021-05-01] MEDS: ONDANSETRON 4 MG/2 ML INJ IV ×2 (10:58→18:38)
[2021-05-01] MEDS: KETOROLAC 30 MG/ML VIAL IV ×3 (11:04→22:40)
--- NOTE | 2021-05-01 11:21 | SUR.PHASEI ---
Patient transfered to room 224 in bed with this RN via stretcher. Updated SBAR at bedside to Jie RN. Pt awake, alert complaining of abdominal pain like cramps. Call light in reach, bed in low position. Parrish patient and dressings C/D/I.
[2021-05-01] MEDS: OXYCODONE IR 5 MG TABLET PO (12:26)
[2021-05-01] MEDS: OXYCODONE IR 10 MG TABLET PO (13:48)
[2021-05-01] MEDS: hydrOXYzine pamoate 25 MG CAPSULE PO (13:48)
[2021-05-01] MEDS: ACETAMINOPHEN 325 MG TABLET 650 MG PO (18:38)
[2021-05-01] MEDS: INFLUENZA VACCINE QIV 0.5 ML SYRINGE IM (18:39)
[2021-05-01] MEDS: DOCUSATE 100 MG CAPSULE 200 MG PO (20:47)
--- NOTE | 2021-05-01 20:59 | PC.NURSE ---
Addendum entered by Daina Maxwell R.N. 05/02/21 05:59: Catheter removed per patient request. Instructed in sx/prevention of UTI. Original Note: Patient is alert and oriented. Breath sounds CTA with RA sat of 95%. HRR. Denies nausea. BT hypoactive and patient denies passing flatus as yet. Abdomen is mildly tender but denies pain. Small amount serosanguinous drainage noted on peripad. Bandaid dressings x 3 to abdomen all CDI. Indwelling catheter is patent; urine is clear yellow. Is able to turn self in bed. Not yet out of bed following surgery and declines to get up to ambulate at time of assessment. Wearing bilateral calf SCD's. Fall risk score is moderate but patient verbalizes understanding to call for staff assist when getting out of bed so alarm not in use at this time. Noted patient has dx of diabetes so will check CBG.
[2021-05-02] VITALS: BP 124/77; PULSE 75; RESP 18; TEMP 36.7; O2SAT 96
[2021-05-02] MEDS: KETOROLAC 30 MG/ML VIAL IV (05:21)
[2021-05-02 05:38] LABS: Add Manual Diff / Slide Review NO; Basophils Absolute Auto 0 /uL (0-100); Basophils Percent Auto 0.2 % (0-2); Eosinophils Absolute Auto 0 /uL (0-450); Eosinophils Percent Auto 0.1 % (2-4); Hematocrit 33.6 % (36-46); Hemoglobin 11.2 g/dL (12.0-16.0); Lymphocytes Absolute Auto 2500 /uL (1100-4500); Lymphocytes Percent Auto 19.7 % (25-40); Mean Corpuscular HGB Conc 33.4 % (30-36); Mean Corpuscular Hemoglobin 29.5 PG (26-34); Mean Corpuscular Volume 88.3 fL (80-100); Monocytes Absolute Auto 1000 /uL (0-900); Monocytes Percent Auto 8.2 % (3-14); Neutrophils Absolute Auto 9000 /uL (1500-7000); Neutrophils Percent Auto 71.8 % (50-75); Platelet Count 311 X10^3/uL (150-400); Red Blood Cell Count 3.81 X10^6/uL (4.0-5.2); Red Cell Distribution Width 13.4 % (11.6-14.8); White Blood Cell Count 12.5 X10^3/uL (4.5-11.0)
[2021-05-02 06:00] VITALS: BP 129/80; PULSE 70; RESP 18; TEMP 36.7; O2SAT 98
[2021-05-02 07:45] VITALS: BP 131/81; PULSE 70; RESP 17; TEMP 37; O2SAT 99
[2021-05-02 07:50] VITALS: O2SAT 99
[2021-05-02 09:04] VITALS: O2SAT 97
[2021-05-02] MEDS: METOPROLOL ER 50 MG TABLET PO (09:32)
[2021-05-02] MEDS: DOCUSATE 100 MG CAPSULE 200 MG PO (09:32)
[2021-05-02] MEDS: hydroCHLOROthiazide 25 MG TABLET PO (09:32)
[2021-05-02] MEDS: lisinopriL 20 MG TABLET PO (09:32)
--- NOTE | 2021-05-02 09:34 | P.DS_ITS ---
History of Present Illness History of Present Illness Date Patient Seen: 05/02/21 Time Patient Seen: 09:34 Chief complaint: LAVH ADRY *OPB* Narrative: Status post laparoscopic-assisted vaginal hysterectomy with bilateral salpingo oophorectomy Discharge Providers Provider Discharge Date: 05/02/21 Primary care physician: Veto Wilson MD Discharge provider: Berta Delcid MD Summary Hospital Course Discharge Diagnosis: Dysmenorrhea, uterine fibroids, perineal endometriosis status post laparoscopic-assisted vaginal hysterectomy with bilateral salpingo oophorectomy Hospital Course: Patient underwent a laparoscopic-assisted vaginal hysterectomy with bilateral salpingo oophorectomy on 05/01/2021. Patient is able to urinate post Parrish catheter removal. She is ambulatory. She is tolerating regular diet. Her pain is under control. She is passing gas. Status at Discharge Cognitive/behavioral status at discharge: oriented Functional status at discharge: independent ambulation Overall status at discharge: patient is progressing back to baseline Time Spent with Patient Time spent: Less than 30 minutes Exam Vital Signs (past 8 hours): - 05/02/21 06:00 05/02/21 07:45 05/02/21 09:04 Temperature 98.0 F 98.6 F Pulse Rate 70 70 Respiratory Rate 18 17 Blood Pressure 129/80 131/81 Pulse Oximetry 98 99 97 Oxygen Delivery Method Room Air Oxygen Flow Rate 0 Narrative Exam Narrative: Abdomen is soft, nontender with minimal distention. Dressings are clean, dry, intact. Minimal vaginal bleeding. Extremities without edema and nontender. Objective Labs Result Diagrams: 05/02/21 05:09 Labs: Laboratory Results - last 24 hr 05/02/21 05:09 WBC 12.5 H RBC 3.81 L Hgb 11.2 L Hct 33.6 L MCV 88.3 MCH 29.5 MCHC 33.4 RDW 13.4 Plt Count 311 Neut % (Auto) 71.8 Lymph % (Auto) 19.7 L [place] % (Auto) 8.2 Eos % (Auto) 0.1 L Baso % (Auto) 0.2 Neut # (Auto) 9000 H Lymph # (Auto) 2500 [place] # (Auto) 1000 H Eos # (Auto) 0 Baso # (Auto) 0 PFSH Medical History (Updated 04/30/21 @ 16:38 by Berta Delcid MD) Diabetes (~2019) Dysmenorrhea Eczema Hypertension (~2007) Surgical History (Updated 05/01/21 @ 10:05 by Berta Delcid MD) Anesthesia H/O LEEP (~2010) History of biopsy (~2012) History of History of surgery Family History (Updated 02/26/21 @ 21:26 by Maren Triplett) Father Cancer Mother Hypertension Diabetes mellitus Grandfather Diabetes mellitus Grandmother Hypertension Social History household members: spouse Smoking Status: Former smoker alcohol intake: current Discharge Assessment & Plan Assessment and Plan Assessment: Status post laparoscopic-assisted vaginal hysterectomy with bilateral salpingo oophorectomy doing well. Plan of Treatment: Discharge home. Patient has discharge medication at the pharmacy of Percocet and estradiol patch. She has a follow-up appointment scheduled. Routine precautions reviewed with the patient. Discharge Plan Discharge Plan Patient Disposition: Home Discharge orders & Medications Discharge Orders: Discharge (Order); Ordered 05/02/21 Ordered By: Berta Delcid Prescriptions: Continued oxycodone-acetaminophen 5-325 mg tablet 1 tab PO Q4-6H PRN (Reason: pain) Qty: 20 RF: 0 estradiol 0.05 mg/24 hr patch semiweekly 1 patch transdermal 2XW Qty: 8 RF: 11 metoprolol succinate 50 mg tablet extended release 24 hr 50 mg PO DAILY RF: 0 hydrochlorothiazide 25 mg tablet 25 mg PO DAILY RF: 0 lisinopril 20 mg tablet 20 mg PO DAILY RF: 0 Follow up/Referrals: Berta Delcid MD [Physician] - As previously scheduled Veto Wilson MD [Primary Care Provider] - Diet/Activity/Treatments Diet: Regular Activity: Nothing in vagina or lifting over 20 lb for 6 weeks Skin/Wound/Dressing Care Report to your healthcare provider any signs of infection, such as:: chills, fever and increased pain Dressing: May remove Band-Aids later today. Leave Steri-Strips in place. Can get wet just pat dry. If they have not fallen off in 1 week get wet and remove Visit Report/Discharge Packet Instructions: DI for Hysterectomy, DI for Laparoscopy Discharge Data Primary Care Provider: Veto Wilson Attending Provider: Berta Delcid
--- NOTE | 2021-05-02 11:34 | PC.NURSE ---
Discharge: Pt feels ready to d/c to home. Seen by Dr. Delcid and given d/c instructions. Parrish out and has voided. Tolerates diet w/out problems. No use of narcotic pain medication. Pt reports her pain is in control. Can have something if she needs it. Reviewed d/c packet. Already has rx. Questions answered. Pt d/c home via auto w/spouse.
== END 2021-05-02 10:45 | disposition home or self-care (01) ==
LOC: OR 06:30 → AC 11:23
PROVIDERS: PCP Family Medicine; Referring Provider Specialist; Visit Provider Specialist
PROC: 0UT9FZZ Resection of Uterus, Via Natural or Artificial Opening With Percutaneous Endoscopic Assistance (ICD-10-PCS; CPT 58552; principal; 2021-05-01 07:45)
DX: N94.6 Dysmenorrhea, unspecified (principal); D25.9 Leiomyoma of uterus, unspecified; N80.3 Endometriosis of pelvic peritoneum; I10 Essential (primary) hypertension; E11.9 Type 2 diabetes mellitus without complications
CPT/HCPCS: 58552; 36415; 82962; 85025; 90471; 90656; 94760; J0171; J0330; J0690; J1100; J1170; J1885; J2405; J2704; J2795; J3010; Q2038

== ENCOUNTER → 2025-01-08 07:42 | Outpatient (CLI) | payer OTHER, SELFPAY ==
[2021-05-01 11:46] VITALS: BMI 29.8
--- NOTE | 2025-01-08 07:43 | DI.US.S_ITS ---
PROCEDURE: US CAROTID DOPPLER BI INDICATIONS: SHOOTING NECK PAIN TECHNIQUE: Color and pulse Doppler interrogation was performed of both carotid systems, with image documentation and velocity measurements. COMPARISON: None. FINDINGS: Stenosis calculations are based on SRU (Society of Radiologists in Ultrasound) criteria. The flow velocities and the arterial waveforms are normal within both carotid arterial systems. No significant atherosclerotic plaque is seen. The estimated degree of internal carotid artery stenosis is less than 50%. Antegrade flow is confirmed within both vertebral arteries. The right brachial blood pressure measures 162/107. The left brachial blood pressure measures 160/102. IMPRESSION: No hemodynamically significant stenosis is seen. Arterial hypertension measured at the time of this study. Dictated by: Moo Stanton M.D. on 01/08/2025 at 9:39 Approved by: Moo Stanton M.D. on 01/08/2025 at 9:40
--- NOTE | 2025-01-08 07:43 | DI.US.S_ITS ---
PROCEDURE: US ABDOMEN COMPLETE INDICATIONS: ABD PAIN TECHNIQUE: Real-time scanning was performed of the abdominal and retroperitoneal organs, with image documentation. COMPARISON: None. FINDINGS: Liver: The liver is enlarged with diffuse fatty infiltration with no focal mass. Gallbladder: The gallbladder is anechoic with no stones or wall thickening. Negative Gomez sign. Biliary ducts: Not well seen due to bowel gas. Pancreas: Visualized portions of the pancreas are sonographically normal. Spleen: Spleen is normal in size and homogeneous in echotexture. Kidneys: Kidneys are normal in size and echotexture. Right kidney measures 13 cm long; left kidney measures 12 cm long. No hydronephrosis or nephrolithiasis. No solid masses. Aorta: Visualized aorta is normal in caliber at less than 3 cm. Iliacs: Proximal common iliac arteries are normal in caliber at less than 2.5 cm. IVC: Obscured by bowel gas. Miscellaneous: No free abdominal fluid. IMPRESSION: 1. Hepatomegaly with steatosis. 2. Otherwise unremarkable exam. Dictated by: Bel Bourgeois M.D. on 01/08/2025 at 11:43 Approved by: Bel Bourgeois M.D. on 01/08/2025 at 11:47
== END ==
LOC: US 07:42
PROVIDERS: PCP Family Medicine
DX: K76.0 Fatty (change of) liver, not elsewhere classified (principal); M54.2 Cervicalgia; R10.9 Unspecified abdominal pain; I10 Essential (primary) hypertension; E11.9 Type 2 diabetes mellitus without complications
CPT/HCPCS: 76700; 93880

== ENCOUNTER → 2025-04-05 11:49 | Outpatient (CLI) | payer OTHER, SELFPAY ==
[2021-05-01 11:46] VITALS: BMI 29.8
--- NOTE | 2025-04-05 11:50 | DI.US.S_ITS ---
PROCEDURE: US ABDOMEN LIMITED INDICATIONS: ELEVATED LIVER ENZYMES TECHNIQUE: Real-time focused scanning was performed of the abdomen, with image documentation. COMPARISON: [facility], US, US ABDOMEN COMPLETE, 01/08/2025, 7:58. FINDINGS: Liver measures 16 cm. Increased echogenicity, severe. The deep field was not well seen. Unremarkable gallbladder. Biliary tree was not well seen. Pancreas was not well seen. IMPRESSION: Significantly increased echogenicity of the liver, nonspecific, most commonly due to steatosis. Biliary system was not fully visualized. The deep field of the liver was not fully visualized. Dictated by: Phoenix Pratt M.D. on 04/05/2025 at 19:58 Approved by: Phoenix Pratt M.D. on 04/05/2025 at 20:01
== END ==
PROVIDERS: PCP Physician Assistant; Referring Provider Physician Assistant; Visit Provider Physician Assistant
DX: R74.8 Abnormal levels of other serum enzymes (principal)
CPT/HCPCS: 76705

== ENCOUNTER 2025-06-18 13:42 | Emergency (ER) | payer OTHER, SELFPAY ==
[2021-05-01 11:46] VITALS: BMI 29.8
--- OUTSIDE RECORDS SUMMARY | 2025-06-18 13:45 | XMS_ITS | Encounter Summary ---
Author Organization [facility] Address [address] [address] Care Team Providers Care Feed Blender Name Role Phone Samuel Hawley MD Primary Care Provider [phone] Encounter Details Date Type Department Care Team (Late st Contact Info) Description 10/14/2015 Scanned Document SCANNED ONLY Scanned, Document Social History Tobacco Use Types Packs/Day Years Used Date Smoking Tobacco: Former Alcohol Use Standard Drinks/Week Comments Yes 0 (1 standard drink = 0.6 oz pur e alcohol) Rare Comments Unknown Sex and Gender Information Value Date Recorded Sex Assigned at Not on file Legal Sex Female 2:40 PM PST Gender Identity Not on file Sexual Orientation Not on file documented as of this encounter Plan of Treatment Not on file documented as of this encounter Visit Diagnoses Not on filedocumented in this encounter Care Teams Feed Blender Relationship Specialty Start Date End Date Samuel Hawley MD [address] [place] [id number] PCP - General 08/01/15 documented as of this encounter
[2025-06-18 14:28] VITALS: BP 127/58; PULSE 92; RESP 15; TEMP 36.5; O2SAT 100; BMI 31.7
--- NOTE | 2025-06-18 15:59 | ED.BACK ---
HPI - Back Pain/Injury <Dilma Medel PA-C - Last Filed: 06/19/25 10:58> General Chief Complaint: Back Pain/Injury Stated Complaint: back px/injury x 1 week Time Seen by Provider: 06/18/25 15:37 Source: patient History of Present Illness HPI Narrative: Ms. Real is a pleasant 55-year-old female with a past medical history of hypertension who presents to the emergency department for right-sided back pain x 3 weeks. Patient states she developed mid back pain 3 weeks ago. She did not have any injury at that time. The pain is worse with twisting and range of motion and also with deep breathing. One week ago then she also had an accidental fall while walking her dog landing on her left side. She is not having any significant pain on her left side from this fall and there was no head strike. Her pain at this time is primarily in the mid right side of her back. Muscle relaxers and ibuprofen are not resolving the pain. She denies any chest pain, shortness of breath, fevers, chills, coughing, dysuria, hematuria, abdominal pain, nausea, vomiting, diarrhea, constipation, pain after eating or any other concerns. She had an ultrasound 2 months ago for elevated liver enzymes which revealed an unremarkable gallbladder and hepatic steatosis. Related Data Home Medications ?Medication ?Instructions ?Recorded ?Confirmed hydrochlorothiazide 25 mg tablet 25 mg PO DAILY 09/22/20 05/01/21 lisinopril 20 mg tablet 20 mg PO DAILY 09/22/20 05/01/21 metoprolol succinate 50 mg 50 mg PO DAILY 02/19/21 05/01/21 tablet,extended release 24 hr Previous Rx's ?Medication ?Instructions ?Recorded estradiol 0.05 mg/24 hr semiweekly 1 patch transdermal 2XW 05/28/21 transdermal patch Postsurgical menopause #24 ea ketorolac 10 mg tablet 10 mg PO Q8H PRN pain 5 days #14 06/18/25 tabs Allergies Allergy/AdvReac Type Severity Reaction Status Date / Time No Known Drug Allergies Allergy Verified 06/18/25 14:28 Review of Systems <Dilma Medel PA-C - Last Filed: 06/19/25 10:58> Review of Systems ROS Unobtainable: All systems reviewed & are unremarkable except as noted in HPI and below Patient History <Dilma Medel PA-C - Last Filed: 06/19/25 10:58> Medical History Eczema Hypertension (~2007) Dysmenorrhea Diabetes (~2019) Surgical History Anesthesia History of surgery History of biopsy (~2012) H/O LEEP (~2010) History of Family History Father Cancer Mother Hypertension Diabetes mellitus Grandfather Diabetes mellitus Grandmother Hypertension Social History household members: spouse Smoking Status: Former smoker alcohol intake: current Smoking Status: Former smoker tobacco type: cigarettes alcohol intake frequency: holidays/special occasions only Exam <Dilma Medel PA-C - Last Filed: 06/19/25 10:58> Narrative Exam Narrative: GENERAL: 55 year old patient appears stated age. Well-developed patient, in no acute distress. HEAD: Atraumatic. Normocephalic. EYES: No scleral icterus. No injection or drainage. NECK: Trachea midline. Cervical ROM intact. CARDIOVASCULAR: Regular rate and rhythm. RESPIRATORY: ?Nonlabored respirations. ?Speaking in clear, full sentences. ?Clear to auscultation. Breath sounds equal bilaterally. No wheezes, rales, or rhonchi. ? GASTROINTESTINAL: Abdomen soft, non-tender, nondistended. Negative Gomez's sign. EXTREMITIES: No LE edema. BACK: Subjective pain in right parathoracic region, worse with twisting [id number] and flexing forward and backwards but not tender to palpation. Negative CVA tenderness bilaterally and no midline spinal tenderness. No rashes on the skin. NEURO: AOx3. ?Clear speech. ?Moves all 4 extremities appropriately. SKIN: No rash or erythema of visible areas Initial Vital Signs Initial Vital Signs: Vital Signs Temperature 97.7 F 06/18/25 14:28 Pulse Rate 92 H 06/18/25 14:28 Respiratory Rate 15 06/18/25 14:28 Blood Pressure 127/58 L 06/18/25 14:28 Pulse Oximetry 100 06/18/25 14:28 Oxygen Delivery Method Room Air 06/18/25 14:28 <Rolly Madison DO - Last Filed: 06/21/25 09:14> Initial Vital Signs Initial Vital Signs: Vital Signs Temperature 97.7 F 06/18/25 14:28 Pulse Rate 92 H 06/18/25 14:28 Respiratory Rate 15 06/18/25 14:28 Blood Pressure 127/58 L 06/18/25 14:28 Pulse Oximetry 100 06/18/25 14:28 Oxygen Delivery Method Room Air 06/18/25 14:28 Course <Dilma Medel PA-C - Last Filed: 06/19/25 10:58> Orders Ordered: Discontinued Medications Ketorolac Tromethamine (Ketorolac 30 Mg/Ml Vial) 15 mg IV NOW ONE Stop: 06/18/25 16:13 Last Admin: 06/18/25 17:18 Dose: 15 mg Documented By: LEONIDAS Vital Signs Vital signs: Vital Signs - 8 hr 06/18/25 14:28 Temperature 97.7 F Pulse Rate 92 H Respiratory Rate 15 Blood Pressure 127/58 L Pulse Oximetry 100 Oxygen Delivery Method Room Air <Rolly Madison DO - Last Filed: 06/21/25 09:14> Orders Ordered: Discontinued Medications Ketorolac Tromethamine (Ketorolac 30 Mg/Ml Vial) 15 mg IV NOW ONE Stop: 06/18/25 16:13 Last Admin: 06/18/25 17:18 Dose: 15 mg Documented By: LEONIDAS Vital Signs Vital signs: Vital Signs - 8 hr 06/18/25 14:28 Temperature 97.7 F Pulse Rate 92 H Respiratory Rate 15 Blood Pressure 127/58 L Pulse Oximetry 100 Oxygen Delivery Method Room Air MDM - Back Pain/Injury <Dilma Medel PA-C - Last Filed: 06/19/25 10:58> Medical Records Attestation: I reviewed the patient's medical records. Lab Data 06/18/25 17:23 06/18/25 17:23 Labs: Lab Results 06/18/25 Range/Units 17:23 WBC 9.6 (4.5-11.0) X10^3/uL RBC 4.88 (4.0-5.2) X10^6/uL Hgb 14.5 (12.0-16.0) g/dL Hct 42.0 (36-46) % MCV 86.1 (80-100) fL MCH 29.7 (26-34) PG MCHC 34.5 (30-36) % RDW 13.3 (11.6-14.8) % Plt Count 374 (150-400) X10^3/uL Neut % (Auto) 59.2 (50-75) % Lymph % (Auto) 30.5 (25-40) % [place] % (Auto) 6.3 (3-14) % Eos % (Auto) 3.4 (2-4) % Baso % (Auto) 0.6 (0-2) % Neut # (Auto) 5700 (1001-4015) /uL Lymph # (Auto) 2900 (3869-1085) /uL [place] # (Auto) 600 (0-900) /uL Eos # (Auto) 300 (0-450) /uL Baso # (Auto) 100 (0-100) /uL PT 11.7 (9.4-12.5) SECONDS INR 1.0 (0.9-1.3) APTT 30 (25.1-36.5) SECONDS Sodium 141 (137-145) mmol/L Potassium 3.7 (3.4-5.1) mmol/L Chloride 107 (98-107) mmol/L Carbon Dioxide 22 (22-32) mmol/L BUN 17 (7-17) mg/dL Creatinine 0.57 (0.52-1.04) mg/dL Estimated GFR > 60 (>60) mL/min BUN/Creatinine Ratio 29.8 H (6-22) Glucose 100 H (70-99) mg/dL Calcium 9.8 (8.4-10.2) mg/dL Magnesium 1.9 (1.6-2.3) mg/dL Total Bilirubin 0.3 (0.2-1.3) mg/dL AST 31 (14-36) IU/L ALT 40 H (<35) IU/L Alkaline Phosphatase 72 (38-126) U/L Troponin I < 0.012 (0.01-0.034) ng/mL Total Protein 8.6 H (6.3-8.2) g/dL Albumin 4.8 (3.5-5.0) g/dL Globulin 3.8 (1.7-4.1) g/dL Albumin/Globulin Ratio 1.3 (1.0-2.8) Lipase 89 (23-300) U/L Urine Dip Bedside Urine Glucose Negative Bedside Urine Bilirubin - Negative Bedside Urine Ketone - Negative Urine Specific [place] 1.015 Bedside Urine Occult Blood - Negative Bedside Urine pH 5.5 Bedside Urine Protein - Negative Bedside Urine Urobilinogen - Negative Bedside Urine Nitrite - Negative Bedside Urine Leukocytes - Negative Esterase Imaging Data Chest & Ribs X-Ray: Radiologist's Impression: PROCEDURE: XR RIBS RT MIN 3V W CXR 1V INDICATIONS: nontraumatic right lower rib pain TECHNIQUE: 2 views of the ribs were acquired, along with a single view chest. COMPARISON: None. FINDINGS: Surgical changes and devices: None. Bones and chest wall: No fractures or dislocations. No suspicious bony lesions. Overlying soft tissues appear unremarkable. Lungs and pleura: No pleural effusions or pneumothorax. Lungs appear clear. Mediastinum: Mediastinal contours appear normal. Heart size is normal. IMPRESSION: No displaced rib fracture or pneumothorax. Dictated by: Ty Farfan M.D. on 06/18/2025 at 16:29 Approved by: Ty Farfan M.D. on 06/18/2025 at 16:29 Thoracic Spine X-Ray: Radiologist's Impression: PROCEDURE: XR THORACIC SPINE 2V INDICATIONS: right sided mid back pain TECHNIQUE: 3 views of the thoracic spine were acquired. COMPARISON: None. FINDINGS: Bones: No fractures or dislocations. No suspicious bony lesions. 12 pairs of ribs are noted, and appear intact where visualized. Soft tissues: No paravertebral stripe thickening. IMPRESSION: No acute bony abnormality. Dictated by: Ty Farfan M.D. on 06/18/2025 at 16:29 Approved by: Ty Farfan M.D. on 06/18/2025 at 16:29 [facility] Narrative Medical decision making narrative: 55-year-old female with a past medical history of hypertension who presents to the emergency department for right-sided back pain x 3 weeks. Differential diagnosis includes but isn't limited to muscle strain, spinal stenosis, rib fracture, cholecystitis, muscle spasm, pneumonia, pleural effusion, PE, atypical angina, etc. On exam the patient is in no acute distress, nontoxic appearing, vital signs appropriate. She has right-sided thoracic pain that did not occur from trauma that is worse with range of motion but not with palpation. Pain is worse with a deep breath but she is not having any chest pain, shortness of breath, hypoxia, tachycardia, lower leg swelling or edema, she does not take any blood thinners. Given pain was not traumatic we will obtain both chest and abdominal lab work, obtain x-ray of the ribs and thoracic spine and treat with Toradol. EKG does reveal normal sinus rhythm with a rate of 79 beats per minute. She does have T-wave inversions in leads 3, V2, V3, V4. No ST segment elevation or depression. No prior EKGs for comparison. Repeat EKG confirms the same. Labs reveal normal WBC count 9.6, hemoglobin 14.5 hematocrit 42.0. Platelets 374. Sodium 141, potassium 3.7, BUN 17 creatinine 0.57. Glucose 100. Undetectable troponin, pain has been persistent for 3 weeks, repeat troponin not warranted. Normal AST 31, total bili 0.3, slightly elevated ALT 40, alkaline phosphatase normal 72, lipase normal 89. Point of care urinalysis negative for signs of infection or stone. Thoracic spine x-ray reveals no abnormalities, chest and ribs x-ray reveal no abnormalities. Patient's pain improved significantly after receiving Toradol. Discussed with the patient that at this time it is not certain what is causing her pain but I do suspect a musculoskeletal etiology at this point. Workup is overall reassuring with the exception of abnormal EKG however in the setting of no chest pain or shortness of breath, advised patient follow up with her PCP for further evaluation for this. States that she has had EKGs in the past at other facilities that she might be able to obtain to allow her PCP to compare. Discussed use of ketorolac for pain control at home in addition to Tylenol and supportive care I discussed strict ER return precautions. Patient and her verbalized understanding all information and she is agreeable with the plan and stable for discharge home. <Rolly Madison, DO - Last Filed: 06/21/25 09:14> Lab Data Labs: Lab Results 06/18/25 Range/Units 17:23 WBC 9.6 (4.5-11.0) X10^3/uL RBC 4.88 (4.0-5.2) X10^6/uL Hgb 14.5 (12.0-16.0) g/dL Hct 42.0 (36-46) % MCV 86.1 (80-100) fL MCH 29.7 (26-34) PG MCHC 34.5 (30-36) % RDW 13.3 (11.6-14.8) % Plt Count 374 (150-400) X10^3/uL Neut % (Auto) 59.2 (50-75) % Lymph % (Auto) 30.5 (25-40) % [place] % (Auto) 6.3 (3-14) % Eos % (Auto) 3.4 (2-4) % Baso % (Auto) 0.6 (0-2) % Neut # (Auto) 5700 (4469-4370) /uL Lymph # (Auto) 2900 (0099-7403) /uL [place] # (Auto) 600 (0-900) /uL Eos # (Auto) 300 (0-450) /uL Baso # (Auto) 100 (0-100) /uL PT 11.7 (9.4-12.5) SECONDS INR 1.0 (0.9-1.3) APTT 30 (25.1-36.5) SECONDS Sodium 141 (137-145) mmol/L Potassium 3.7 (3.4-5.1) mmol/L Chloride 107 (98-107) mmol/L Carbon Dioxide 22 (22-32) mmol/L BUN 17 (7-17) mg/dL Creatinine 0.57 (0.52-1.04) mg/dL Estimated GFR > 60 (>60) mL/min BUN/Creatinine Ratio 29.8 H (6-22) Glucose 100 H (70-99) mg/dL Calcium 9.8 (8.4-10.2) mg/dL Magnesium 1.9 (1.6-2.3) mg/dL Total Bilirubin 0.3 (0.2-1.3) mg/dL AST 31 (14-36) IU/L ALT 40 H (<35) IU/L Alkaline Phosphatase 72 (38-126) U/L Troponin I < 0.012 (0.01-0.034) ng/mL Total Protein 8.6 H (6.3-8.2) g/dL Albumin 4.8 (3.5-5.0) g/dL Globulin 3.8 (1.7-4.1) g/dL Albumin/Globulin Ratio 1.3 (1.0-2.8) Lipase 89 (23-300) U/L Urine Dip Bedside Urine Glucose Negative Bedside Urine Bilirubin - Negative Bedside Urine Ketone - Negative Urine Specific [place] 1.015 Bedside Urine Occult Blood - Negative Bedside Urine pH 5.5 Bedside Urine Protein - Negative Bedside Urine Urobilinogen - Negative Bedside Urine Nitrite - Negative Bedside Urine Leukocytes - Negative Esterase MDM Narrative Medical decision making narrative: 55-year-old female with a past medical history of hypertension who presents to the emergency department for right-sided back pain x 3 weeks. Differential diagnosis includes but isn't limited to muscle strain, spinal stenosis, rib fracture, cholecystitis, muscle spasm, pneumonia, pleural effusion, PE, atypical angina, etc. On exam the patient is in no acute distress, nontoxic appearing, vital signs appropriate. She has right-sided thoracic pain that did not occur from trauma that is worse with range of motion but not with palpation. Pain is worse with a deep breath but she is not having any chest pain, shortness of breath, hypoxia, tachycardia, lower leg swelling or edema, she does not take any blood thinners. Given pain was not traumatic we will obtain both chest and abdominal lab work, obtain x-ray of the ribs and thoracic spine and treat with Toradol. EKG does reveal normal sinus rhythm with a rate of 79 beats per minute. She does have T-wave inversions in leads 3, V2, V3, V4. No ST segment elevation or depression. No prior EKGs for comparison. Repeat EKG confirms the same. Labs reveal normal WBC count 9.6, hemoglobin 14.5 hematocrit 42.0. Platelets 374. Sodium 141, potassium 3.7, BUN 17 creatinine 0.57. Glucose 100. Undetectable troponin, pain has been persistent for 3 weeks, repeat troponin not warranted. Normal AST 31, total bili 0.3, slightly elevated ALT 40, alkaline phosphatase normal 72, lipase normal 89. Point of care urinalysis negative for signs of infection or stone. Thoracic spine x-ray reveals no abnormalities, chest and ribs x-ray reveal no abnormalities. Patient's pain improved significantly after receiving Toradol. Discussed with the patient that at this time it is not certain what is causing her pain but I do suspect a musculoskeletal etiology at this point. Workup is overall reassuring with the exception of abnormal EKG however in the setting of no chest pain or shortness of breath, advised patient follow up with her PCP for further evaluation for this. States that she has had EKGs in the past at other facilities that she might be able to obtain to allow her PCP to compare. Discussed use of ketorolac for pain control at home in addition to Tylenol and supportive care I discussed strict ER return precautions. Patient and her verbalized understanding all information and she is agreeable with the plan and stable for discharge home. Co-sign statement: I was available for consultation during this patient's emergency department visit. This chart is being signed by myself for administrative purposes only. I do not have direct contact with this patient during this visit. They were seen independently by the APC. Discharge Plan Departure Patient Disposition: Home Clinical Impression: Right-sided back pain Qualifiers: Back pain location: thoracic back pain Chronicity: acute Qualified Code(s): M54.6 - Pain in thoracic spine Fall Qualifiers: Encounter type: initial encounter Qualified Code(s): W19.XXXA - Unspecified fall, initial encounter Instructions: DI for Back Strain or Sprain Activity Restrictions/Additional Instructions: Dear Farhan, Thank you for coming to the emergency department. Today you were evaluated for right-sided back pain. We obtain chest/rib x-ray and a thoracic spine x-ray which did not reveal any bone problems. Your blood work was overall reassuring. You do have an abnormal EKG and I recommend that you follow up with your primary care doctor for further discussion about this and comparison to prior EKGs you may have had. Please use the prescribed ketorolac as needed for pain, you can also take Tylenol with this medication. I recommend use [id number] lidocaine patches as well. Heat therapy and gentle stretching can be helpful but avoid heavy lifting or bending. Please return to the ER immediately if you develop chest pain, shortness of breath, abdominal pain, painful urination, fevers or any other concerns. Please follow up with your primary care doctor within the next 2-3 days for ER follow-up. (If you do not have a PCP you can call [phone]. ?to schedule an appointment with an [facility] Primary Care Provider) IF YOU DEVELOP ANY NEW OR WORSENING SYMPTOMS, RETURN TO THE ER! Please read the attached instructions, they highlight more specific treatments and interventions for you at home. Thank you for letting me participate in your care, Dilma Medel PA-C Prescriptions: New ketorolac 10 mg tablet 10 mg PO Q8H PRN (Reason: pain) 5 Days Qty: 14 0RF Rx Instructions: Take with food. No Action estradiol 0.05 mg/24 hr patch semiweekly 1 patch transdermal 2XW Qty: 24 4RF Rx Instructions: apply 1 patch for 3 days alternating with 1 patch for 4 days each week metoprolol succinate 50 mg tablet extended release 24 hr 50 mg PO DAILY hydrochlorothiazide 25 mg tablet 25 mg PO DAILY lisinopril 20 mg tablet 20 mg PO DAILY Referrals: Yajaira Ruiz PA-C [Primary Care Provider, Medical] Stand Alone Forms: Patient Portal/API
--- NOTE | 2025-06-18 16:08 | DI.RAD.S_ITS ---
PROCEDURE: XR RIBS RT MIN 3V W CXR 1V INDICATIONS: nontraumatic right lower rib pain TECHNIQUE: 2 views of the ribs were acquired, along with a single view chest. COMPARISON: None. FINDINGS: Surgical changes and devices: None. Bones and chest wall: No fractures or dislocations. No suspicious bony lesions. Overlying soft tissues appear unremarkable. Lungs and pleura: No pleural effusions or pneumothorax. Lungs appear clear. Mediastinum: Mediastinal contours appear normal. Heart size is normal. IMPRESSION: No displaced rib fracture or pneumothorax. Dictated by: Ty Farfan M.D. on 06/18/2025 at 16:29 Approved by: Ty Farfan M.D. on 06/18/2025 at 16:29
--- NOTE | 2025-06-18 16:08 | EKG_ITS ---
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
--- NOTE | 2025-06-18 16:08 | DI.RAD.S_ITS ---
PROCEDURE: XR THORACIC SPINE 2V INDICATIONS: right sided mid back pain TECHNIQUE: 3 views of the thoracic spine were acquired. COMPARISON: None. FINDINGS: Bones: No fractures or dislocations. No suspicious bony lesions. 12 pairs of ribs are noted, and appear intact where visualized. Soft tissues: No paravertebral stripe thickening. IMPRESSION: No acute bony abnormality. Dictated by: Ty Farfan M.D. on 06/18/2025 at 16:29 Approved by: Ty Farfan M.D. on 06/18/2025 at 16:29
[2025-06-18] MEDS: KETOROLAC 30 MG/ML VIAL 15 MG IV (17:18)
[2025-06-18 17:31] LABS: Add Manual Diff / Slide Review NO; Hematocrit 42.0 % (36-46); Hemoglobin 14.5 g/dL (12.0-16.0); Lymphocytes Absolute Auto 2900 /uL (1100-4500); Mean Corpuscular HGB Conc 34.5 % (30-36); Mean Corpuscular Hemoglobin 29.7 PG (26-34); Mean Corpuscular Volume 86.1 fL (80-100); Platelet Count 374 X10^3/uL (150-400)
[2025-06-18 17:38] LABS: INR 1.0 (0.9-1.3); Prothrombin Time 11.7 SECONDS (9.4-12.5)
[2025-06-18 17:41] LABS: PTT Partial Thromboplastin Tim 30 SECONDS (25.1-36.5)
[2025-06-18 17:42] LABS: Alanine Aminotransferase 40 IU/L (<35); Albumin 4.8 g/dL (3.5-5.0); Albumin Globulin Ratio 1.3 (1.0-2.8); Alkaline Phosphatase 72 U/L (38-126); Blood Urea Nitrogen 17 mg/dL (7-17); Calcium 9.8 mg/dL (8.4-10.2); Carbon Dioxide 22 mmol/L (22-32); Chloride 107 mmol/L (98-107); Estimated Glomerular Filt Rate > 60 mL/min (>60); Globulin 3.8 g/dL (1.7-4.1); Glucose 100 mg/dL (70-99); HEMOLYSIS < 15 (0-50); Lipase 89 U/L (23-300); Magnesium 1.9 mg/dL (1.6-2.3); Potassium 3.7 mmol/L (3.4-5.1); Sodium 141 mmol/L (137-145); Total Protein 8.6 g/dL (6.3-8.2)
[2025-06-18 17:54] LABS: Troponin I < 0.012 ng/mL (0.01-0.034)
--- NOTE | 2025-06-18 18:50 | EKG_ITS ---
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
[2025-06-18 19:21] VITALS: BP 178/98; PULSE 79; RESP 17; O2SAT 100
== END 2025-06-18 19:22 | disposition home or self-care (01) ==
PROVIDERS: Emergency Provider Physician Assistant; PCP Physician Assistant
DX: M54.6 Pain in thoracic spine (principal); W19.XXXA Unspecified fall, initial encounter
CPT/HCPCS: 71101; 72070; 80053; 81003; 83690; 83735; 84484; 85025; 85610; 85730; 93005; 96374; 99283; J1885